=== PATIENT | male | born 1985 | race American Indian/Alaskan Native ===

== ENCOUNTER 2017-04-26 06:01 | Day surgery (SDC) | payer BC ==
--- NOTE | 2017-04-22 13:55 | Anesthesia Consultation ---
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 After detailed questioning he stated that after he had circumcision as 2-day-old baby he "swelled up and his urine turned to vinegar". Patient explained the unlikehood him having malignant hyperthermia due to none of triggering agents being used during the procedure, but we will be taken the same aproach as if he has malignant hyperthermia - TIVA with no anesthesia gas plus femoral nerve block
[2017-04-26] MEDS ORDERED: PEPCID IV NR (07:00)
[2017-04-26] MEDS ORDERED: NEURONTIN PO NR (07:00)
[2017-04-26] MEDS ORDERED: VERSED IV NR (07:00)
[2017-04-26] MEDS ORDERED: LACTATED RINGERS 1,000 ML IV SCH (07:00)
[2017-04-26] MEDS ORDERED: SUBLIMAZE ONE (07:15)
[2017-04-26] MEDS ORDERED: XYLOCAINE 1% 20 mL ONE (07:15)
[2017-04-26] MEDS ORDERED: MARCAINE-EPI 0.5%-1:200,000 INFILTRATI ONE (07:15)
[2017-04-26] MEDS ORDERED: DIPRIVAN 10 MG/ML 1,000 MG/100 ML BOTTLE IV ONE (07:29)
[2017-04-26] MEDS ORDERED: XYLOCAINE MPF 2% ONE (07:34)
[2017-04-26] MEDS ORDERED: DILAUDID ONE (07:34)
[2017-04-26] MEDS ORDERED: ADRENALIN ONE (07:39)
[2017-04-26] MEDS ORDERED: XYLOCAINE 2% INFILTRATI ONE ×2 (07:39→07:55)
[2017-04-26] MEDS ORDERED: MARCAINE-EPI 0.25%-1:200,000 INFILTRATI ONE ×2 (07:39→07:55)
[2017-04-26] MEDS ORDERED: ceFAZolin 2 GM in NACL 0.9% 100 ML IV ONE (07:55)
[2017-04-26] MEDS ORDERED: DECADRON ONE (08:06)
[2017-04-26] MEDS ORDERED: ZOFRAN ONE (08:06)
--- NOTE | 2017-04-26 08:14 | Anesthesia Day of Surgery ---
Anesthesia Day of Surgery - Day of Surgery Patient Examined: Yes Patient H&P Reviewed: Yes Patient is NPO: Yes
[2017-04-26] MEDS ORDERED: ADRENALIN IV ONE (08:25)
[2017-04-26] MEDS ORDERED: ePHEDrine SULFATE ONE (08:41)
[2017-04-26] MEDS ORDERED: DIPRIVAN 10 MG/ML IV ONE ×2 (08:44→09:03)
--- NOTE | 2017-04-26 09:36 | Short Stay Summary ---
Short Stay Documentation Date of service: 04/26/17 Narrative H&P: 32 yo male with persistent right knee pain and instability. Patient failed to improve with nonoperative treatment. MRI positive for ACL tear and lateral meniscus tear. The patient's MRI findings and diagnosis discussed at length. Treatment alternatives discussed surgical nonsurgical including risks and benefits of both the patient wished to proceed with operative fixation. - History H&P: obtained from office - Allergies and Medications Current Medications: Allergies succinylcholine [Succinylcholine] Allergy (Verified 04/21/17 17:07) MALIGNANT HYPERTHERMIA Home Medications Medication Instructions Recorded Confirmed Last Taken Type Ibuprofen [Motrin] 800 mg PO Q8HR PRN 04/21/17 04/26/17 04/19/17 History Active Medications Celecoxib (Celebrex) 200 mg PO PREOP NR Stop: 04/26/17 23:00 Last Admin: 04/26/17 06:55 Dose: 200 mg Famotidine (Pepcid) 20 mg IV PREOP NR Stop: 04/26/17 23:00 Last Admin: 04/26/17 07:06 Dose: 20 mg Gabapentin (Neurontin) 300 mg PO PREOP NR Stop: 04/26/17 23:00 Last Admin: 04/26/17 06:56 Dose: 300 mg Hydromorphone HCl (Dilaudid) 0.5 mg IV Q10MIN PRN PRN Reason: Pain , Severe (7-10) Stop: 04/29/17 08:15 Lactated Ringer's (Lactated Ringers) 1,000 mls @ 100 mls/hr IV DIRECT OLVIN Last Admin: 04/26/17 07:00 Dose: 100 mls/hr Cefazolin Sodium 2 gm/ Sodium (Chloride) 100 mls @ 200 mls/hr IV ONCE ONE Stop: 04/26/17 08:24 Methylprednisolone Sodium Succinate (Solu-Medrol) 125 mg IV PREOP NR Stop: 04/26/17 23:00 Last Admin: 04/26/17 07:02 Dose: 125 mg Midazolam HCl (Versed) 2 mg IV PREOP NR Stop: 04/26/17 23:59 Last Admin: 04/26/17 07:26 Dose: 2 mg Ondansetron HCl (Zofran) 4 mg IV ONCE PRN PRN Reason: Nausea And Vomiting Stop: 04/26/17 08:15 - Physical exam General appearance: no acute distress Integumentary: no rash HEENT: Atraumatic Lungs: Clear to auscultation Breasts: deferred Heart: Regular rate Gastrointestinal: normal Male Genitourinary: deferred Female Genitourinary: deferred Rectal Exam: deferred Extremities: Full ROM Neurological: Normal gait, Normal speech, Strength at 5/5 X4 ext, Normal tone, Sensation intact, Reflexes 2+ - Brief post op/procedure progress note Date of procedure: 04/26/17 Pre-op diagnosis: right knee anterior cruciate ligament tear, lateral mensicus tear Post-op diagnosis: same Procedure: right knee arthroscopy patial lateral meniscectomy, anterior cruciate ligament reconstruction with bone patellar tendon bone allograft Anesthesia: GETA Findings: large complex tear posterior horn lateral mensicus, complete rupture of the anterior cruciate ligament reconstruction Surgeon: SERGIO WRAY Estimated blood loss: minimal Pathology: none Condition: stable - Hospital course Hospital course: no perioperative complications - Disposition Condition at discharge: Good Disposition: DC-01 TO HOME OR SELFCARE
[2017-04-26] MEDS ORDERED: LACTATED RINGERS 1,000 ML ONE (09:44)
[2017-04-26] MEDS ORDERED: ZOFRAN IV PRN (10:00)
[2017-04-26] MEDS: DILAUDID IV PRN ×4 (10:08→10:48)
[2017-04-26] MEDS ORDERED: MORPHINE IV PRN (10:41)
--- NOTE | 2017-04-26 10:42 | Post Anesthesia Evaluation ---
- Post Anesthesia Evaluation Patient Participated: Yes Airway Patent: Yes Stable Respiratory Function: Yes Nausea/Vomiting: No Temp > 96.8F: Yes Pain Manageable: Yes Adequeate Hydration: Yes Anesthesia Complications: No Block Receding Appropriately: Yes Patient on Ventilator: No
[2017-04-26] MEDS ORDERED: PERCOCET 5/325 ONE (10:57)
[2017-04-26] MEDS ORDERED: TORADOL IV PRN (11:00)
[2017-04-26] MEDS ORDERED: ANCEF/STERILE WATER 2 GM/20 ML 2 GM/20 ML SYRINGE IV NR (11:00)
[2017-04-26] MEDS ORDERED: PERCOCET 5/325 PO ONE (11:29)
[2017-04-26] MEDS ORDERED: VERSED IV ONE (11:30)
[2017-04-26] MEDS ORDERED: MOTRIN PO PRN (14:00)
--- NOTE | 2017-04-26 16:02 | Operative Report ---
PREOPERATIVE DIAGNOSIS: Persistent right knee pain, large complex tear located within the posterior horn of the lateral meniscus, rupture of the anterior cruciate ligament. POSTOPERATIVE DIAGNOSIS: Persistent right knee pain, large complex tear located within the posterior horn of the lateral meniscus as well as the juncture of the anterior and posterior horn, complete rupture of the anterior cruciate ligament. OPERATIVE PROCEDURE: Right knee arthroscopy, partial lateral meniscectomy, anterior cruciate ligament reconstruction with bone-patellar tendon-bone allograft. SURGEON: Gabriel Marie MD WAFER ABRADING MACHINE TENDER: Francia Rich, certified phlebotomy technician. ANESTHESIA: General plus preoperative femoral nerve block. PREOPERATIVE ANTIBIOTICS: Ancef 2 grams IV within 1 hour of skin incision. DVT PROPHYLAXIS: Open toe, thigh high compression stockings and SCD pumps to the nonoperative left lower extremity. OPERATIVE INSTRUMENTATION: Two bioabsorbable RigidFix pins for femoral bone plug fixation as well as one 9 x 23 mm ____ absorbable screw for tibial bone plug fixation as well as one bone-patellar tendon-bone allograft. OPERATIVE COMPLICATIONS: None. OPERATIVE HISTORY AND PHYSICAL: This is a 32-year-old male who has had persistent right knee pain and instability status post injury. The patient failed to improve with nonoperative treatment of continued persistent pain, instability despite the extensive nonoperative treatment with a marked limitation of his normal activities of daily living. MRI scan was performed was positive for a large tear located within the posterior horn of the lateral meniscus as well as complete rupture of the anterior cruciate ligament. The patient's MRI findings and diagnosis were discussed at length. After making sure the patient understood his diagnosis and all his questions were answered. We discussed treatment alternatives, surgical and nonsurgical including risks and benefits of both. After a long lengthy discussion, the patient opted to proceed with operative intervention. This will entail a right knee arthroscopy, partial lateral meniscectomy, possible lateral meniscus repair, anterior cruciate ligament reconstruction with bone-patellar tendon-bone allograft. We did discuss the option of allograft versus autograft. The risks and benefits of both were discussed and the patient opts to proceed with allograft fixation. After making sure, the patient understood the operative procedure. We then discussed the risks to include, but not exclusive of infection, blood loss, nerve damage, loss of range of motion, persistent pain, recurrent rupture of his graft, blood clots, ____ the patient understood these risks and all his questions were answered, the patient then wished to proceed with operative intervention. DESCRIPTION OF PROCEDURE: The patient was seen in the preoperative holding room area at which point informed consent was reviewed and appropriate right lower extremity was identified and then marked. Anesthesia then performed a femoral nerve block to the right lower extremity. After confirmation of adequate analgesia of the right lower extremity, the patient was then brought back to the operating room and placed supine on a standard operating table, at which point, general anesthesia was administered and an LMA tube was inserted. After confirmation of proper placement of LMA tube and appropriate general anesthesia, we then made sure that all bony prominences were well padded. There were no wrinkles in the compression stockings on the left lower extremity. SCD pumps were applied to the left lower extremity. The arms were secured in neutral position. The patient was ____ armboard. The head was secured in nice neutral position as well. The right lower extremity was then examined under anesthesia. The patient was seen to have full range of motion with a markedly positive anterior drawer test as well as a positive Nilda as well as a positive pivot shift test. There was a negative posterior drawer. No varus or valgus instability at 0 as well as 30 degrees of flexion. No recurvatum or excessive external rotation compared to the opposite extremity. Following this, the right lower extremity was then prepped and draped in the usual sterile fashion. After prepping and draping, a timeout was called and appropriate right lower extremity was identified which again had been marked ____. We began our procedure by first infiltrating the knee with 30 mL of 0.25% Marcaine with epinephrine and 30 mL of 1% lidocaine without epinephrine which the patient tolerated well and no complication. We then began our procedure by first making a standard anterolateral portal with a #15 blade. Once the portal was established, the cannula with a blunt trocar was inserted into the intra-articular aspect of the knee joint. This went without difficulty or damage to articular cartilage. Once in place, the arthroscopic camera was immediately placed in the medial compartment, we established anteromedial portal, by first inserting an 18 gauge spinal needle under arthroscopic visualization, once confirmed the appropriate position ____ meniscus, a #11 blade was then used to establish anteromedial portal. Once the portal was established, blunt trocar was inserted via the portal site. Following that, an arthroscopic probe, we began diagnostic arthroscopy in the medial compartment. The patient was seen to have the normal articular cartilage of the medial femoral condyle and medial tibial plateau. There were no tears in the anterior or posterior horn of the medial meniscus. Inspection not sure the complete rupture of the anterior cruciate ligament. The posterior cruciate ligament, however, was seen to be intact and stable when probed. Inspection of lateral compartment showed to be a large complex tear at the junction of the anterior and posterior horn of the lateral meniscus as well as directly in the posterior horn itself. This was irreparable. We performed a partial lateral meniscectomy in standard fashion using series of basket punches and the 4.0 meniscal shaver down to nice smooth stable ____ as well as a portion of the ____. Once this was completed, we inspected the medial and lateral gutters were seen to be free and clear of all loose bodies. Inspection of patellofemoral joint to be normal articular cartilage with normal patellofemoral tracking. There were no loose bodies within the suprapatellar pouch. We turned our attention back to the notch where we debrided the old stump of the anterior cruciate ligament and then following this, arthroscopic pump was turned off. We turned our attention to shaping the graft was on the backtable. This was shaped in order to obtain a 10 mm x 30 mm bone plugs both fibular as well as tibial sides and then once the bone plugs had been shaped appropriately, one drill hole with #2 Orthocord suture was placed in the tibial bone plug and femoral bone plug and then 2 perpendicular drill holes were placed with coarse one #2 Orthocord suture placed in the tibial bone plug. The graft was then placed on the back table and tensioned appropriately and left in place. Then our attention back to the knee, arthroscopic pump was turned back on. We then performed a slight notchplasty making careful attention not to lateralize the medial aspect of the lateral femoral condyle wall and could easily access the posterior aspect of the femoral condyle. Once this was completed, the tibial tunnel guide was then inserted through the medial portal and then a third incision made in the anterior medial aspect of the proximal tibia anticipation for a tibial tunnel. Once in place, the guidewire was then placed from the outer to the inner cortex and into the intra-articular aspect of the knee and seen to be in excellent position in line with the anterior horn of the lateral meniscus ____ posterior cruciate ligament and with easy appropriate access to the posterior wall. It was confirmed with appropriate positioning, #10 reamer was then used to ream the tibial tunnel. Once the tibial tunnel was reamed, the 7-mm ____ guide was placed and then the long Beath pin was then drilled in place in anterolateral aspect of the distal thigh. Once this was in place, the #10 drill bit was then used to drill the femoral tunnel to a depth of 35 and once drilled, the extraneous bone was removed from the knee using the arthroscopic shaver. Once this was completed, the RigidFix guide was then gently tapped into place and brought up into the femoral tunnel. We then made a fourth incision on the lateral aspect of the distal thigh anticipation for placing the RigidFix pins cannulated guides. Once skin incision was made, the cannulated guides were then drilled in place in appropriate position, the cannulated guides were then left in place and the intra-articular aspect of the guide was then removed. The graft was then taken off the back table, which had been left to be tensioning and the femoral bone plug sutures were threaded through the eyelet of the Beath pin and the graft was then pulled up into the intra-articular aspect of the knee joint. Once in place, the graft was held in place by my personal banking assistant and then drilled through the RigidFix cannulas on the lateral aspect of the distal thigh through the femoral bone plug and then two RigidFix bioabsorbable pins were then gently tapped into place. Once in place, ____ on the tibial bone plug sutures and cycled the knee through full range of motion. We had good excellent stability of the femoral bone plug within the femoral tunnel with good positioning of the graft. Once this was confirmed, the Nitinol pin was then inserted into the tibial tunnel just anterior to our new ACL graft. Once this was confirmed to be in appropriate position, the arthroscopic camera was removed ____ and then placed in the tibial tunnel with the knee in full extension. We confirmed that there was no wrapping of the sutures around the Nitinol pin. Following this, the arthroscopic camera was removed from the tibial tunnel. We used a #9 tap and then once a tapped the 9 x 23 bioabsorbable Lola screw was then gently placed. Once in position, the arthroscopic camera was then placed back into the tibial tunnel and again confirming excellent positioning of the screw against the tibial bone plug. Once confirmed to be in appropriate position, the knee was again cycled through full range of motion. A Nilda exam test was performed, which showed good excellent stability of the graft. Next, the camera was then placed back into the intra-articular aspect of the knee and we confirmed excellent positioning of the graft. The graft was also probed and seen to be stable. Following this, the fluid was suctioned from the knee using arthroscopic cannula. Following this, the arthroscopic instrumentation was removed. The two portal sites were closed with 3-0 nylon in simple fashion. A 2-0 Vicryl was used subcutaneously for the tibial tunnel as well as the RigidFix incision and then 3-0 nylon for skin. Adaptic, 4 x 4, ABD open toe, thigh compression stocking and Donjoy Cryo Cuff blanket was applied. The patient was then awakened from general anesthesia without complication and taken to the recovery room in stable condition. Standard postoperative orders were written. JOB# [id number] MY/SONIA
[2017-04-26 19:42] VITALS: BP 144/88
== END 2017-04-26 15:07 | disposition home or self-care (01) ==
LOC: OR 06:01
PROVIDERS: ATTEND Orthopaedic Surgery
DX: S83.231A Complex tear of medial meniscus, current injury, right knee, initial encounter (principal); S83.511A Sprain of anterior cruciate ligament of right knee, initial encounter; Z88.8 Allergy status to other drugs, medicaments and biological substances; W10.8XXA Fall (on) (from) other stairs and steps, initial encounter; Y93.9 Activity, unspecified; Y92.9 Unspecified place or not applicable; Y99.9 Unspecified external cause status
CPT/HCPCS: 29881; 29888; 64447; C1713; C1762; J0171; J0690; J1100; J1170; J1885; J2250; J2270; J2405; J2704; J2930; J3010; J7120

== ENCOUNTER 2019-04-23 04:02 | Emergency (ER) | payer BC, OTHER ==
[2019-04-23 04:29] VITALS: BP 105/68
[2019-04-23] MEDS ORDERED: FLEXERIL PO ONE (04:43)
[2019-04-23] MEDS ORDERED: IBUPROFEN PO ONE (04:43)
[2019-04-23] MEDS ORDERED: TYLENOL PO ONE (04:43)
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
== END 2019-04-23 06:36 | disposition home or self-care (01) ==
LOC: ED 04:02
DX: S00.03XA Contusion of scalp, initial encounter (principal); G44.319 Acute post-traumatic headache, not intractable; Z98.890 Other specified postprocedural states; Z88.4 Allergy status to anesthetic agent; V49.49XA Driver injured in collision with other motor vehicles in traffic accident, initial encounter; Y93.89 Activity, other specified; Y92.410 Unspecified street and highway as the place of occurrence of the external cause; Y99.8 Other external cause status
CPT/HCPCS: 70450

== ENCOUNTER 2021-02-02 21:39 | Emergency (ER) | payer BC ==
[2021-02-02 21:50] VITALS: BP 142/87
[2021-02-02] MEDS ORDERED: IBUPROFEN 800 MG TAB PO ONE (23:25)
--- NOTE | 2021-02-03 00:10 | XRay Report ---
RIGHT KNEE 4 VIEW(S) INDICATION / CLINICAL INFORMATION: right knee pain COMPARISON: None available. FINDINGS: BONES / JOINT(S): No acute fracture or subluxation. No significant arthritis. SOFT TISSUES: No significant abnormality. ADDITIONAL FINDINGS: None. Signer Name: Efren Light MD Signed: 02/03/2021 12:06 AM Workstation Name: [id number]
--- NOTE | 2021-02-03 00:30 | Emergency Department Report ---
ED Lower Extremity HPI - General Chief Complaint: Extremity Injury, Lower Stated Complaint: RT KNEE PAIN AND HIP/SWOLLEN Time Seen by Provider: 02/02/21 23:02 Source: patient Mode of arrival: Ambulatory Limitations: Physical Limitation - History of Present Illness Initial Comments: This is a 36-year-old male nontoxic, well nourished in appearance, no acute signs of distress presents to the ED with c/o of right knee pain 1 day. Patient denies any injuries or trauma. Patient denies any numbness, tingling, fever, chills, nausea, vomiting, chest pain, shortness of breath, headache, stiff neck. Patient denies any joint swelling or joint redness. Patient denies decreased range of motion. Patient stated has decreased gait due to pain. Patient stated has history of right knee surgery. Patient has a right knee immobilizer present in the ED. MD Complaint: knee injury -: days(s) Injury: Knee: Right Severity: mild Severity scale (0 -10): 3 Improves With: immobilization Worsens With: weight bearing, movement, palpation Associated Symptoms: able to partially bear weight. denies: snap/pop sensation, swelling, numbness, tingling, unable to bear weight - Related Data Home Medications Medication Instructions Recorded Confirmed Last Taken Ibuprofen [Motrin] 800 mg PO Q8HR PRN 04/21/17 04/26/17 04/19/17 Previous Rx's Medication Instructions Recorded Last Taken Type oxyCODONE /ACETAMINOPHEN [Percocet 1 tab PO Q6HR PRN #60 tablet 04/26/17 Unknown Rx 5/325] Ibuprofen [Motrin] 600 mg PO Q8H PRN #20 tablet 04/23/19 Unknown Rx tiZANidine [Zanaflex 4mg TAB] 4 mg PO Q8H PRN #15 tablet 04/23/19 Unknown Rx traMADoL [Ultram] 50 mg PO Q6HR PRN #15 tablet 04/23/19 Unknown Rx Naproxen 500 mg PO Q12H PRN #12 tablet 02/03/21 Unknown Rx Allergies Allergy/AdvReac Type Severity Reaction Status Date / Time succinylcholine Allergy MALIGNANT Verified 02/02/21 21:41 [Succinylcholine] HYPERTHERMIA ED Review of Systems ROS: Stated complaint: RT KNEE PAIN AND HIP/SWOLLEN Other details as noted in HPI Constitutional: denies: chills, fever Eyes: denies: eye pain, eye discharge, vision change ENT: denies: ear pain, throat pain Respiratory: denies: cough, shortness of breath, wheezing Cardiovascular: denies: chest pain, palpitations Endocrine: no symptoms reported Gastrointestinal: denies: abdominal pain, nausea, diarrhea Genitourinary: denies: urgency, dysuria Musculoskeletal: denies: back pain, joint swelling, arthralgia Skin: denies: rash, lesions Neurological: denies: headache, weakness, paresthesias Psychiatric: denies: anxiety, depression Hematological/Lymphatic: denies: easy bleeding, easy bruising ED Past Medical Hx - Past Medical History Previous Medical History?: No Hx Hypertension: No 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 - Surgical History Past Surgical History?: Yes Additional Surgical History: Right ACL surgery - Social History Smoking Status: Current Some Day Smoker Substance Use Type: None - Medications Home Medications: Home Medications Medication Instructions Recorded Confirmed Last Taken Type Ibuprofen [Motrin] 800 mg PO Q8HR PRN 04/21/17 04/26/17 04/19/17 History oxyCODONE /ACETAMINOPHEN [Percocet 1 tab PO Q6HR PRN #60 tablet 04/26/17 Unknown Rx 5/325] Ibuprofen [Motrin] 600 mg PO Q8H PRN #20 tablet 04/23/19 Unknown Rx tiZANidine [Zanaflex 4mg TAB] 4 mg PO Q8H PRN #15 tablet 04/23/19 Unknown Rx traMADoL [Ultram] 50 mg PO Q6HR PRN #15 tablet 04/23/19 Unknown Rx Naproxen 500 mg PO Q12H PRN #12 tablet 02/03/21 Unknown Rx ED Physical Exam - General Limitations: Physical Limitation General appearance: alert, in no apparent distress - Head Head exam: Present: atraumatic, normocephalic - Eye Eye exam: Present: normal appearance - Neck Neck exam: Present: normal inspection, full ROM - Respiratory Respiratory exam: Absent: respiratory distress - Cardiovascular Cardiovascular Exam: Present: regular rate - Extremities Exam Extremities exam: Present: normal inspection, full ROM, tenderness, normal capillary refill. Absent: joint swelling, calf tenderness - Expanded Lower Extremity Exam Right Hip exam: Present: normal inspection, full ROM. Absent: tenderness, swelling Upper Leg exam: Present: normal inspection, full ROM. Absent: tenderness, swelling Knee exam: Present: normal inspection, full ROM, tenderness, full knee extension. Absent: swelling, abrasion, laceration, ecchymosis, deformity, crepidus, dislocation, erythema, effusion, pain w/ pronation/supination, posterior draw sign, pain/laxity with valgus, pain/laxity with varus Lower Leg exam: Present: normal inspection, full ROM. Absent: tenderness, swelling Ankle exam: Present: normal inspection, full ROM. Absent: tenderness, swelling Foot/Toe exam: Present: normal inspection, full ROM. Absent: tenderness, swelling Neuro vascular tendon exam: Present: no vascular compromise Gait: Positive: observed and limited by pain - Back Exam Back exam: Present: normal inspection, full ROM - Neurological Exam Neurological exam: Present: alert, oriented X3, normal gait - Psychiatric Psychiatric exam: Present: normal affect, normal mood - Skin Skin exam: Present: warm, dry, intact, normal color. Absent: rash ED Course Vital Signs 02/02/21 02/03/21 21:46 00:14 Temperature 99.1 F Pulse Rate 88 Respiratory 18 20 Rate Blood Pressure 142/87 O2 Sat by Pulse 99 Oximetry - Reevaluation(s) Reevaluation #1: 02/03/21 00:28 Patient is speaking in full sentences with no signs of distress noted. ED Lower Extremity M[place] [address] XRay Report Signed Patient: ROCIO BARBOZA MR#: [id number] : 1985 Acct:[id number] Age/Sex: 35 / M ADM Date: 02/02/21 Loc: ED Attending Dr: Ordering Physician: CHAS VASQUEZ NP Date of Service: 02/02/21 Procedure(s): XR knee 3V RT Accession Number(s): [id number] cc: CHAS VASQUEZ NP Fluoro Time In Minutes: RIGHT KNEE 4 VIEW(S) INDICATION / CLINICAL INFORMATION: right knee pain COMPARISON: None available. FINDINGS: BONES / JOINT(S): No acute fracture or subluxation. No significant arthritis. SOFT TISSUES: No significant abnormality. ADDITIONAL FINDINGS: None. Signer Name: Efren Light MD Signed: 02/03/2021 12:06 AM Workstation Name: [id number] Transcribed By: TL Dictated By: Efren Light MD Electronically Authenticated By: Efren Light MD Signed Date/Time: 02/03/21 0006 DD/ 0005 TD/TT: - Medical Decision Making This is a 36-year-old male that presents with right knee strain. Patient is stable and was examined by me. I referred patient to an orthopedic doctor for further evaluation for possible MRI. X-ray has been obtained and dictated by the radiologist. Patient is notified of the x-ray report with noted by the patient. Patient does have normal gait with no tenderness and no joint swelling. No ecchymosis. no joint redness or swelling. Not warm to touch. No signs of cellulites present. Patient does have a knee immobilizer present. Patient was instructed to RICE therapy. Patient received Motrin for pain. Patient is discharged with Motrin. At time of discharge, the patient does not seem toxic or ill in appearance. No acute signs of distress noted. Patient agrees to discharge treatment plan of care. No further questions noted by the patient. Critical care attestation.: If time is entered above; I have spent that time in minutes in the direct care of this critically ill patient, excluding procedure time. ED Disposition Clinical Impression: Strain of right knee Qualifiers: Encounter type: initial encounter Qualified Code(s): S86.911A - Strain of unspecified muscle(s) and tendon(s) at lower leg level, right leg, initial encounter Disposition: - TO HOME OR SELFCARE Is pt being admited?: No Does the pt Need Aspirin: No Condition: Stable Instructions: RICE Therapy for Routine Care of Injuries, [id number] Additional Instructions: Follow-up with a orthopedic doctor in 3-5 days or if symptoms worsen and continue return to emergency room as soon as possible. No physical activity that extremity until cleared by orthopedic doctor Prescriptions: Naproxen 500 mg PO Q12H PRN #12 tablet PRN Reason: Pain , Severe (7-10) Referrals: PRIMARY CARE, [Primary Care Provider] - 3-5 Days ALBERT HYATT MD [Staff Physician] - 3-5 Days Forms: Work/School Release Form(ED) Time of Disposition: 00:30
== END 2021-02-03 00:47 | disposition home or self-care (01) ==
LOC: ED 21:39
DX: S86.911A Strain of unspecified muscle(s) and tendon(s) at lower leg level, right leg, initial encounter (principal); F17.200 Nicotine dependence, unspecified, uncomplicated; Z98.890 Other specified postprocedural states; Z79.1 Long term (current) use of non-steroidal anti-inflammatories (NSAID); Z79.899 Other long term (current) drug therapy; Z88.8 Allergy status to other drugs, medicaments and biological substances; X58.XXXA Exposure to other specified factors, initial encounter; Y93.89 Activity, other specified; Y92.89 Other specified places as the place of occurrence of the external cause; Y99.8 Other external cause status